=== PATIENT | female | born 1995 | race Caucasian/White ===

== ENCOUNTER → 2020-07-06 13:43 | Outpatient (CLI) | payer OTHER, SELFPAY ==
--- NOTE | 2020-07-06 13:47 | DI.MRI.S_ITS ---
PROCEDURE: MR TMJ WO CON INDICATIONS: JAW PAIN TECHNIQUE: Axial T1 spin echo, coronal and sagittal PD fast spin echo through the temporomandibular joints, in both the closed- and open-mouth positions. COMPARISON: None. FINDINGS: Image quality: Excellent. Right: Joint is normally aligned on closed and open-mouth positioning. Articular disk demonstrates normal location and morphology. No bony erosions or osteophytes. Left: Joint is normally aligned on closed and open-mouth positioning. Articular disk demonstrates normal location and morphology. No bony erosions or osteophytes. IMPRESSION: No findings of significant TMJ internal derangement or arthritis. Dictated by: Jeremiah Swift M.D. on 07/06/2020 at 14:35 Approved by: Jeremiah Swift M.D. on 07/06/2020 at 14:36
== END ==
PROVIDERS: Referring Provider Dentist Oral and Maxillofacial Surgery; Visit Provider Dentist Oral and Maxillofacial Surgery
DX: R68.84 Jaw pain (principal)
CPT/HCPCS: 70336

== ENCOUNTER 2020-09-15 11:46 | Emergency (ER) | payer OTHER, SELFPAY ==
[2020-09-15] VITALS (8 sets, daily range): BP systolic 99–127; BP diastolic 52–63; PULSE 62–73; RESP 14–18; TEMP 37.1; O2SAT 97–100; BMI 28.3
--- NOTE | 2020-09-15 13:05 | ED_ITS ---
HPI - General Adult General Chief complaint: Syncope Stated complaint: Syncope Time Seen by Provider: 09/15/20 12:14 Source: patient Mode of arrival: EMS Limitations: no limitations History of Present Illness HPI narrative: Patient is an otherwise healthy 24-year-old female who is here for evaluation of a syncopal episode while at work. States that while at work she was starting to feel very lightheaded. Became very clammy. Was able sit down in a chair but then got up to move to walk into their kitchen space and the next thing that she remembers paramedics were around her. She now reports a headache. She has no neck pain. She does have a history of headaches but feels like this is somewhat different. Prior to passing out she did not have any shortness of breath but did feel like her heart was beating fast. She now is not having those symptoms. Related Data Allergies Allergy/AdvReac Type Severity Reaction Status Date / Time No Known Drug Allergies Allergy Verified 09/15/20 12:02 Review of Systems Constitutional Constitutional: Denies fatigue, Denies fever(s), Denies frequent falls and Reports headache(s) Eyes Eyes: Denies change in vision ENT Ears, Nose, Mouth, and Throat: Denies vertigo, Reports headache(s), Denies disequilibrium and Denies sore throat Cardiovascular Cardiovascular: Denies chest pain, Reports syncope and Reports rapid heart rate Respiratory Respiratory: Denies cough Gastrointestinal Gastrointestinal: Denies abdominal pain, Reports nausea and Denies vomiting Genitourinary Genitourinary: Denies dysuria Genitourinary: Denies dysuria Musculoskeletal Musculoskeletal: Denies arthralgias, Denies myalgias and Denies tingling Integumentary/Breasts Skin/Breast: Denies rash Neurologic Neurologic: Reports confusion, Denies vertigo, Reports syncope, Denies frequent falls, Reports headache(s), Denies tingling and Denies disequilibrium Psychiatric Psychiatric: Reports confusion Endocrine Endocrine: Denies fatigue Hematologic/Lymphatic On Anticoagulants: No Allergic/Immunologic Allergic/Immunologic: Denies urticaria Patient History Medical History Healthy adult Social History Smoking Status: Never smoker Smoking Status: Never smoker alcohol intake frequency: 0-2 drinks per day Substance Use Type: does not use Exam Initial Vital Signs Initial Vital Signs: Vital Signs Temperature 98.7 F 09/15/20 11:45 Pulse Rate 73 09/15/20 11:45 Respiratory Rate 16 09/15/20 11:45 Blood Pressure 119/63 09/15/20 11:45 Pulse Oximetry 100 09/15/20 11:45 Const General: cooperative, comfortable and well developed Limitations: mental status not altered HENMT Head: normal to inspection and normocephalic Eyes General: appearance normal, both eyes and all related structures Resp Effort & Inspection: normal respiratory effort Auscultation: clear to auscultation bilaterally Cardio Rate: regular rate Rhythm: regular rhythm GI Inspection: non-distended Palpation: soft Skin Lesions: no lesions Rashes: no rashes Neuro General: patient alert, patient awake and patient oriented x3 Cognition: normal cognition Speech: speech normal Gait: normal gait Motor: muscle tone normal throughout Sensory Exam: no sensory deficits noted Extrem General: normal to inspection and capillary refill normal Psych Appearance: grossly normal and well kempt Scores GCS Hathaway coma scale eye opening: Spontaneous Luis Carlos coma scale verbal response: Orientated Luis Carlos coma scale motor response: Obey commands Luis Carlos coma scale total score: 15 Course Orders Ordered: ED Orders 09/15/20 11:55 Basic Metabolic Panel Stat Complete Blood Count AUTO DIFF Stat Test Serum,Qual Stat 09/15/20 12:09 EKG-12 Lead Stat 09/15/20 13:06 CT head/brain wo con Stat Discontinued Medications Acetaminophen (Acetaminophen 325 Mg Tablet) 650 mg PO NOW ONE Stop: 09/15/20 13:07 Last Admin: 09/15/20 13:32 Dose: 650 mg Documented by: [email or web address] Sodium Chloride (Normal Saline 0.9%) 1,000 mls @ 1,000 mls/hr IV BOLUS ONE Stop: 09/15/20 14:05 Last Infusion: 09/15/20 15:04 Dose: 0 mls/hr Documented by: [email or web address] Admin: 09/15/20 13:32 Dose: 1,000 mls/hr Documented by: [email or web address] Ketorolac Tromethamine (Ketorolac 60 Mg/2 Ml Vial) 30 mg IV NOW ONE Stop: 09/15/20 13:07 Last Admin: 09/15/20 13:34 Dose: 30 mg Documented by: [email or web address] Vital Signs Vital signs: Vital Signs - 8 hr 09/15/20 11:45 09/15/20 13:06 09/15/20 13:19 Temperature 98.7 F Pulse Rate 73 63 71 Respiratory Rate 16 18 Blood Pressure 119/63 127/59 L Pulse Oximetry 100 99 99 09/15/20 13:30 09/15/20 13:31 09/15/20 14:00 Temperature Pulse Rate 68 66 71 Respiratory Rate Blood Pressure 99/56 L 101/52 L Pulse Oximetry 100 99 99 09/15/20 15:08 09/15/20 15:13 Temperature Pulse Rate 67 62 Respiratory Rate 14 16 Blood Pressure 115/62 115/60 Pulse Oximetry 97 97 Medical Decision Making Lab Data Lab results reviewed: Yes I reviewed the patient's lab results. Result diagrams: 09/15/20 11:55 09/15/20 11:55 Labs: Lab Results 09/15/20 09/15/20 09/15/20 Range/Units 11:55 11:55 11:55 WBC 8.1 (4.5-11.0) X10^3/uL RBC 4.18 (4.0-5.2) X10^6/uL Hgb 12.9 (12.0-16.0) g/dL Hct 37.4 (36-46) % MCV 89.4 (80-100) fL MCH 30.8 (26-34) PG MCHC 34.5 (30-36) % RDW 12.6 (11.6-14.8) % Plt Count 279 (150-400) X10^3/uL Neut % (Auto) 69.2 (50-75) % Lymph % (Auto) 23.8 L (25-40) % [place] % (Auto) 5.0 (3-14) % Eos % (Auto) 1.6 L (2-4) % Baso % (Auto) 0.4 (0-2) % Neut # (Auto) 5600 (9185-0302) /uL Lymph # (Auto) 1900 (7447-6002) /uL [place] # (Auto) 400 (0-900) /uL Eos # (Auto) 100 (0-450) /uL Baso # (Auto) 0 (0-100) /uL Sodium 138 (137-145) mmol/L Potassium 3.3 L (3.4-5.1) mmol/L Chloride 109 H (98-107) mmol/L Carbon Dioxide 22 (22-32) mmol/L BUN 10 (7-17) mg/dL Creatinine 0.49 L (0.52-1.04) mg/dL Estimated GFR > 60.0 (>60) mL/min BUN/Creatinine Ratio 20.4 (6-22) Glucose 94 (70-100) mg/dL Calcium 8.6 (8.4-10.2) mg/dL Serum , Qual Negative (Negative) Point of Care Testing Test Results Negative Glucose POC 117 Urine Dip Bedside Urine Glucose Negative Bedside Urine Bilirubin - Negative Bedside Urine Ketone - Negative Urine Specific [place] 1.015 Bedside Urine Occult Blood - Negative Bedside Urine pH 6 Bedside Urine Protein - Negative Bedside Urine Urobilinogen - Negative Bedside Urine Nitrite - Negative Bedside Urine Leukocytes - Negative Esterase Point of care testing: Point of Care Testing Test Results Negative Glucose POC 117 Urine Dip Bedside Urine Glucose Negative Bedside Urine Bilirubin - Negative Bedside Urine Ketone - Negative Urine Specific [place] 1.015 Bedside Urine Occult Blood - Negative Bedside Urine pH 6 Bedside Urine Protein - Negative Bedside Urine Urobilinogen - Negative Bedside Urine Nitrite - Negative Bedside Urine Leukocytes - Negative Esterase Imaging Data CT scan - head: Radiologist's Impression: [address] [id number] Scan ReportSigned Patient: Romulo Schaffer#: [id number]: 1995Acct:[id number]/Sex: 24 / FDate of Service: 09/15/20Loc: EDAccession Number: [id number] Procedure: CT head/brain wo con Ordering Provider: Bharat Rosas D.O. PROCEDURE: CT HEAD/BRAIN WO CON INDICATIONS: Syncope with headache TECHNIQUE: Noncontrast 4.5 mm thick angled axial sections acquired from the foramen magnum to the vertex, with coronal and sagittal reformats. For radiation dose reduction, the following was used: automated exposure control, adjustment of mA and/or kV according to patient size. COMPARISON: None. FINDINGS: Image quality: Excellent. CSF spaces: Basal cisterns are patent. No extra-axial fluid collections. Ventricles are normal in size and shape. Brain: No midline shift. No intracranial masses or hemorrhage. Rodriguez-white matter interface is normal. Skull and face: Calvarium and visualized facial bones are intact, without suspicious lesions. Sinuses: Visualized sinuses and mastoids are clear. IMPRESSION: Negative head CT. No evidence acute stroke, hemorrhage, or mass. Dictated by: Toby North M.D. on 09/15/2020 at 13:23 Approved by: Toby North M.D. on 09/15/2020 at 13:23 ECG Data Attestation: I personally reviewed and interpreted this ECG as follows: Prior ECG tracings: not available for review Interpretation: Sinus rhythm Ventricular rate is 64 Normal axis Normal QRS Normal QTC No ST T wave changes MDM Narrative Medical decision making narrative: Patient is alert oriented. Her EKG is unremarkable here at head CT is unremarkable. She reports great improvement of not resolution of her headache after medications. She is afebrile. Low suspicion for subarachnoid hemorrhage. I do suspect this is vasovagal. test was negative. No abdominal pain. Will send patient home without further workup. She was given return precautions and follow-up instructions. She expressed understanding and agreement. Discharge Plan Departure Patient Disposition: Home Clinical Impression: Syncope, Headache Instructions: Fainting Activity Restrictions/Additional Instructions: Recommend that you increase your fluid intake and continue any medications as directed. Contact your primary provider for a follow-up. Return to the emergency department for any new or worsening symptoms
[2020-09-15 13:13] LABS: Add Manual Diff / Slide Review NO; Basophils Absolute Auto 0 /uL (0-100); Basophils Percent Auto 0.4 % (0-2); Eosinophils Absolute Auto 100 /uL (0-450); Eosinophils Percent Auto 1.6 % (2-4); Hematocrit 37.4 % (36-46); Hemoglobin 12.9 g/dL (12.0-16.0); Lymphocytes Absolute Auto 1900 /uL (1100-4500); Lymphocytes Percent Auto 23.8 % (25-40); Mean Corpuscular HGB Conc 34.5 % (30-36); Mean Corpuscular Hemoglobin 30.8 PG (26-34); Mean Corpuscular Volume 89.4 fL (80-100); Monocytes Absolute Auto 400 /uL (0-900); Neutrophils Absolute Auto 5600 /uL (1500-7000); Neutrophils Percent Auto 69.2 % (50-75); Platelet Count 279 X10^3/uL (150-400); Red Blood Cell Count 4.18 X10^6/uL (4.0-5.2); Red Cell Distribution Width 12.6 % (11.6-14.8); White Blood Cell Count 8.1 X10^3/uL (4.5-11.0)
[2020-09-15 13:16] LABS: Pregnancy Test Serum,Qual Negative (Negative)
[2020-09-15 13:18] LABS: HEMOLYSIS < 15 (0-50); Potassium 3.3 mmol/L (3.4-5.1)
[2020-09-15 13:19] LABS: BUN Creatinine Ratio 20.4 (6-22); Blood Urea Nitrogen 10 mg/dL (7-17); Calcium 8.6 mg/dL (8.4-10.2); Carbon Dioxide 22 mmol/L (22-32); Chloride 109 mmol/L (98-107); Estimated Glomerular Filt Rate > 60.0 mL/min (>60); Glucose 94 mg/dL (70-100); Sodium 138 mmol/L (137-145)
[2020-09-15] MEDS: SODIUM CHLORIDE 0.9% 1,000 ML 1000 ML IV (13:32)
[2020-09-15] MEDS: ACETAMINOPHEN 325 MG TABLET 650 MG PO (13:32)
[2020-09-15] MEDS: KETOROLAC 60 MG/2 ML VIAL 30 MG IV (13:34)
== END 2020-09-15 15:15 | disposition home or self-care (01) ==
PROVIDERS: Emergency Provider Emergency Medicine
DX: R55 Syncope and collapse (principal); R51.9 Headache, unspecified; R41.0 Disorientation, unspecified
CPT/HCPCS: 36415; 70450; 80048; 81003; 81025; 84703; 85025; 93005; 96361; 96374; 99284; J1885

== ENCOUNTER → 2021-01-27 14:50 | Outpatient (CLI) | payer OTHER, SELFPAY ==
--- NOTE | 2021-01-27 14:52 | DI.ECHO.S_ITS ---
[facility]---------+ [facility] +---------+ : : [address] : : : : [id number] : : : : Phone: [phone] Echocardiogram Report + + :Name: LORELEI WHITE Study Date: 01/27/2021 Height: 60 in : :[facility] ReadingLocation: Weight: 140 lb : : Gender: Female BSA: 1.6 m2 : :: 1995 Age: 25 yrs BP: 102/65 mmHg: :Reason For Study: SYNCOPE AND COLLAPSE : :Ordering Physician: REI, : :JORGE Performed By: Lissette Rodas : :Referring: JORGE MINAYA : + + Interpretation Summary Normal sinus rhythm. Normal LV size, wall thickness, wall motion and LV systolic function. EF is 60-65%. No valvular abnormalities. normal chamber sizes. Procedure: A two-dimensional transthoracic echocardiogram with color flow and Doppler was performed. The study quality was technically adequate. There is no prior echocardiogram noted for this patient. The patient was in sinus rhythm with heart rates between 75-91 bpm during the exam. Left Ventricle: The left ventricle is normal in size and wall thickness. The ejection fraction is estimated to be 60-65%. Diastolic parameters suggest probable normal left ventricular diastolic function and normal filling pressures. Right Ventricle: The right ventricle is normal in size and function. Atria: The left atrial size is normal. Right atrial size is normal. There is no Doppler evidence for an interatrial shunt. Mitral Valve: The mitral valve is normal in structure and function. There is trace mitral regurgitation. Aortic Valve: The aortic valve is trileaflet. The aortic valve opens well. There is no aortic valve stenosis. No aortic regurgitation is present. Tricuspid Valve: The tricuspid valve is normal in structure and function. There is trace tricuspid regurgitation. Pulmonary artery pressures cannot be estimated because of the lack of a measurable TR jet velocity but the IVC suggests a CVP of around 3 mmHg. Pulmonic Valve: The pulmonic valve leaflets are thin and pliable; valve motion is normal. There is trace pulmonic regurgitation. Great Vessels: The aortic root is normal size. The dimensions of the ascending aorta are normal. The IVC is of normal diameter and collapses greater than 50% with a sniff. This suggests a low right atrial pressure of 3 mm Hg. Pericardium/ Pleura There is no pericardial effusion. There is no pleural effusion. MMode/2D Measurements & Calculations LVIDd: 5.2 cm LVOT diam: 2.0 cm LVIDs: 3.3 cm Ao root diam: 2.4 cm FS: 35.7 % asc Aorta Diam: 2.4 cm IVSd: 0.58 cm Ao Arch Diam (Prox Trans): 2.4 cm LVPWd: 0.51 cm LV mcghee. diameter/BSA (cm/m^2): 3.2 LV sys. diameter/BSA (cm/m^2): 2.1 LA A2 area: 14.9 cm2 RA long axis: 4.0 cm LA A4 area: 14.0 cm2 RA area: 10.7 cm2 LA length (vol): 4.3 cm RA vol: 24.1 ml LA vol: 41.6 ml RA : 15.0 ml/m2 LA vol index: 26.0 ml/m2 IVC diam: 1.0 cm RVD1 (basal): 3.2 cm TAPSE: 2.1 cm Doppler Measurements & Calculations Ao V2 max: 114.0 cm/sec LVOT Max Segundo: 87.2 cm/sec Ao V2 mean: 79.5 cm/sec LV V1 max P.0 mmHg Ao max P.2 mmHg LV V1 VTI: 16.6 cm Ao mean P.8 mmHg GERA(I,D): 2.4 cm2 Ao V2 VTI: 21.8 cm GERA(V,D): 2.4 cm2 sev ratio: 0.76 GERA indexed to BSA (cm^2/m^2): 1.5 MV E max segundo: 71.8 cm/sec PA V2 max: 93.6 cm/sec MV A max segundo: 53.2 cm/sec PA V2 mean: 59.8 cm/sec MV E/A: 1.3 PA mean P.7 mmHg Med Peak E' Segundo: 10.2 cm/sec PA pr(Accel): 27.6 mmHg E/E' med: 7.1 Lat Peak E' Segundo: 15.4 cm/sec E/E' lat: 4.7 E/e' average: 5.9 MV dec time: 0.18 sec SV([facility]): 51.2 ml Electronically signed by: Jorge Minaya M.D. on Reading Physician:01/28/2021 07:14 AM
== END ==
PROVIDERS: PCP Nurse Practitioner Family; Referring Provider Internal Medicine; Visit Provider Internal Medicine
DX: R55 Syncope and collapse (principal)
CPT/HCPCS: 93306